=== PATIENT | male | born 1950 | race Caucasian/White ===

== ENCOUNTER → 2018-07-24 | Outpatient (CLI) | payer OTHER, MEDICARE ==
[~2018-07-24] MED LIST: GADOBUTROL 10 ML VIAL IVP ONE
== END ==
LOC: FIMAGING 06:29
DX: N40.0 Benign prostatic hyperplasia without lower urinary tract symptoms (principal); R19.04 Left lower quadrant abdominal swelling, mass and lump; R97.20 Elevated prostate specific antigen [PSA]
CPT/HCPCS: 72197; 76377; A9585; 82565-PO